=== PATIENT | male | born 2000 ===

== ENCOUNTER 2025-09-06 10:30 | Outpatient (RCR) | payer OTHER, SELFPAY | END 2025-10-13 08:31 | disposition home or self-care (01) | PROVIDERS: PCP Student in an Organized Health Care Education/Training Program; Visit Provider Student in an Organized Health Care Education/Training Program | DX: M79.662 Pain in left lower leg (principal); M25.512 Pain in left shoulder; Z51.89 Encounter for other specified aftercare | CPT/HCPCS: 97110; 97112; 97140; 97162 ==